=== PATIENT | male | born 1940 | race Caucasian/White ===

== ENCOUNTER → 2020-07-29 | Outpatient (CLI) | payer MEDICARE, BC ==
[~2020-07-29] MED LIST: ALLEGRA 60MG TA60 MG PO; ASPIRIN E.C. 8181 MG PO; BETAPACE 120MG120 MG PO; CALCIUM 600MG+D1 TAB PO; EPA FISH OIL1 SGL PO; KAPSPARGO SPRIN25 MG PO; LIVALO PO; LOPRESSOR 225 MG/TAB PO; METOPROLOL TART25 MG PO; METOPROLOL50 MG PO; NASONEX SPRAY17 GM NS; NIACIN500 M1 PO; NORVASC 10MG10 MG PO; OMEPRAZOLE40 MG PO; OS CAL PO; PRESERVISION1 SGL PO; VITAMIN C BUFF500 MG PO; VITAMIN D32000 IU PO; VITAMIN D3400 IU PO; VITAMIN E1000 U/CAP PO; XARELTO20 MG PO; [UNRECOGNIZED DRUG - OTHER] PO
[2020-07-29 14:24] LABS: TROPONIN-I < 0.012 ng/mL (0.000-0.035)
== END ==
LOC: ZCOL.LAB 13:19
PROVIDERS: Nurse Practitioner
DX: R06.02 Shortness of breath (principal)

== ENCOUNTER 2020-08-12 15:20 | Inpatient (IN) | payer MEDICARE, BC ==
[~2020-08-12 15:20] MED LIST changes: -ALLEGRA 60MG TA60 MG PO; -BETAPACE 120MG120 MG PO; -EPA FISH OIL1 SGL PO; -KAPSPARGO SPRIN25 MG PO; -NORVASC 10MG10 MG PO; -PRESERVISION1 SGL PO; -XARELTO20 MG PO
[2020-08-28 09:52] VITALS: BP 124/67; PULSE 115; TEMP 98.1
[2020-08-28] MEDS ORDERED: NORVASC 10MG10 MG PO (09:53)
[2020-08-28] MEDS ORDERED: KAPSPARGO SPRIN25 MG PO (09:55)
[2020-08-28] MEDS ORDERED: XARELTO20 MG PO (09:56)
[2020-08-28] MEDS ORDERED: EPA FISH OIL1 SGL PO (09:58)
[2020-08-28] MEDS ORDERED: PRESERVISION1 SGL PO (09:59)
[2020-08-28 10:04] LABS: HEMATOCRIT 38.6 % (42.0-52.0); HEMOGLOBIN 12.4 g/dl (13.5-18.0); MEAN CELL VOLUME 99 fl (80.0-100.0); MEAN CORPUSCULAR HEMOGLOBIN 32 pg (27.0-31.0); MEAN CORPUSCULAR HGB CONC 32 g/dl (33.0-37.0); MEAN PLATELET VOLUME 9.4 fl (7.4-10.4); PLATELET COUNT 240 K/mm3 (130-400); RED BLOOD COUNT 3.91 M/mm3 (4.20-5.60); REDCELL DISTRIBUTION WIDTH-CV 14.5 % (11.5-14.5)
[2020-08-28 10:11] LABS: INR 1.3 (0.8-3.0); PROTHROMBIN TIME 14.3 SECONDS (9.7-12.8)
[2020-08-28 10:14] LABS: PARTIAL THROMBOPLASTIN TIME 32.1 SECONDS (26.0-37.0)
[2020-08-28 10:15] LABS: ALBUMIN 3.9 gm/dL (3.5-5.0); BILIRUBIN,TOTAL 0.5 mg/dL (0.0-1.0); CALCIUM 8.8 mg/dL (8.4-10.2); CREATININE, serum 1.21 (0.66-1.25); MAGNESIUM 2.3 mg/dL (1.6-2.3); POTASSIUM 4.1 mmol/L (3.4-5.0); TOTAL PROTEIN 7.7 gm/dL (6.4-8.2)
[2020-08-28] MEDS ORDERED: ALLEGRA 60MG TA60 MG PO (10:18)
--- NOTE | 2020-08-28 10:30 | NUR ---
Admission assessment completed, alert/oriented, vital signs stable, denies pain or discomfort, EKG ordered, Sotalol orders faxed to pharmacy, Tele placed on patient, meds/allergies/pharmacy reviewed and updated with the patient, heart irregular/ A.paced on tele, lungs CTA/ no resp.difficulty noted, Notified cardiology of his arrival, he is indepednent in the room, denies needs
[2020-08-28 12:28] VITALS: BP 120/70; PULSE 63; TEMP 97.6
[2020-08-28 17:15] VITALS: BP 121/57; PULSE 66; TEMP 97.7
[2020-08-28 20:13] VITALS: BP 134/72; PULSE 79; TEMP 97.5
[2020-08-28 23:34] VITALS: BP 125/66; PULSE 68; TEMP 98.4
[2020-08-29 03:26] VITALS: BP 127/63; PULSE 65; TEMP 98.4
[2020-08-29 06:56] LABS: CALCIUM 8.3 mg/dL (8.4-10.2); CREATININE, serum 1.17 (0.66-1.25); MAGNESIUM 2.3 mg/dL (1.6-2.3); POTASSIUM 4.4 mmol/L (3.4-5.0)
[2020-08-29 07:42] VITALS: BP 133/63; PULSE 65; TEMP 97.6
--- NOTE | 2020-08-29 10:14 | NUR ---
Initial visit; Patient thanked Supervisor Home Energy Consultant for looking in on him and offering God's blessings.
[2020-08-29 11:31] VITALS: BP 105/58; PULSE 70; TEMP 97.6
--- NOTE | 2020-08-29 15:50 | NUR ---
Speed Winder met with the patient to complete intake. The patient is independent in the room. The patient lives in [place] with his , Melissa. The patient uses a BiPAP, receives supplies from [facility]. The patient is independent with ADLs. The patient's PCP is Dr. Singh and patient receives medications from [facility]. The patient has a declaration in the EMR but states DPOA-HC is complete and designate his . The patient plans to return home at discharge with no anticipated needs. Discharge disposition: Return home with Melissa
[2020-08-29 16:00] VITALS: BP 135/60; PULSE 61; TEMP 98.1
[2020-08-29 22:21] VITALS: BP 125/75; PULSE 53; TEMP 97.8
[2020-08-29 23:28] VITALS: BP 139/62; PULSE 64; TEMP 97.4
[2020-08-30] VITALS (9 sets, daily range): BP systolic 117–165; BP diastolic 57–77; PULSE 60–67; TEMP 97.1–98.1
[2020-08-30 06:56] LABS: CALCIUM 8.7 mg/dL (8.4-10.2); CREATININE, serum 1.14 (0.66-1.25); MAGNESIUM 2.2 mg/dL (1.6-2.3); POTASSIUM 4.7 mmol/L (3.4-5.0)
--- NOTE | 2020-08-30 07:06 | NUR ---
Report with MANUELA Lee. Pt resting in bed, denies pain or needs. IV to right forearm showing slight pink around insertion site and feeling hard to palpation. IVF's stopped. New IV will be attempted by student nurse.
--- NOTE | 2020-08-30 08:15 | NUR ---
Assessment complete. Pt resting in bed, A&O x 4, denies pain or needs at this time. IVF's infusing to new IV site in right wrist placed by student nurse, no s/s of complications. POC reviewed with pt. Call light in reach.
--- NOTE | 2020-08-30 08:30 | NUR ---
This RN reviewing pt chart in preparation for upcoming heart cath. Pt has history of CABG. Pt received Xarelto at 1700 [address] 08/[address] Kelly contacted in regards to access site for heart cath. Per , plan for right femoral access via ultrasound guidance.
--- NOTE | 2020-08-30 13:30 | NUR ---
Pt back to room from solar lab technician following procedure via bed, awake and alert. VSS. Right radial cath site CDI with TR band in place. Cap refill brisk. POC reviewed with pt regarding activity and food. Pt verbalizes understanding. Call light in reach.
--- NOTE | 2020-08-30 13:53 | NUR ---
Primary nurse was assisted with [phone] (transport to [employer]) patient care [facility] ADN student Celeste Dumont and [employer] [facility] ADN instructor Melinda Bell MSN, RN.
--- NOTE | 2020-08-30 15:45 | NUR ---
5 mls air removed from TR band to left radial site at 1535 , no s/s of bleeding after 5 minutes. Remaining 6 mls air removed from TR band without s/s of bleeding, site CDI.
--- NOTE | 2020-08-30 18:50 | NUR ---
Pt resting in bed, denies pain or needs at this time. Report with MANUELA Krishnan.
--- NOTE | 2020-08-30 20:00 | NUR ---
Report received, assumed care for business unit leader. Assessment complete. VS stable. A&Ox3. Denies pain/nausea/shortness of breath. Dressing to left radial heart cath vstt-myefoga-trq drainage noted. No active bleeding-arm brace on. Plan of care discussed for this shift to include HS meds/calling for questions/concerns/VS monitoring/dressing monitoring. Denies current questions/concerns. Call light in reach. Will monitor.
[2020-08-31] VITALS: BP 122/63; PULSE 67; TEMP 97.9
--- NOTE | 2020-08-31 00:45 | NUR ---
Resting eyes closed. No s/s of pain noted.
[2020-08-31 04:00] VITALS: BP 115/67; PULSE 67; TEMP 98.2
[2020-08-31 04:22] VITALS: BP 115/67; PULSE 67; TEMP 98.2
--- NOTE | 2020-08-31 05:45 | NUR ---
Rested well this shift. Denied pain/nausea/shortness of breath. VS remained stable. Left radial heart cath site-bandaid with scant amount of old drainage-no change this shift. Call light in reach. Will monitor.
[2020-08-31 07:42] VITALS: BP 130/55; PULSE 65; TEMP 98.3
[2020-08-31 07:57] VITALS: BP 130/55; PULSE 65; TEMP 98.3
[2020-08-31] MEDS ORDERED: BETAPACE 120MG120 MG PO (08:34)
--- NOTE | 2020-08-31 09:00 | NUR ---
Patient has been seen by Dr Naranjo and will be discharging after EKG. Patient is alert and oriented. No complaints of pain or nausea. CMS intact to left hand. Radial site is well approximated, no bruising or drainage. No other changes at this time. Call light wihtin reach. Patient is going to shower at this time.
--- NOTE | 2020-08-31 11:30 | NUR ---
Patient is discharging home. Discharge instructions discussed with patient. No questions verbalized. Explained that he needs to call Wednesday for follow up. Patient verbalized understanding. He is aware he has a prescription to sisal picker at the pharmacy. Copies of discharge instructions given to patient. INT discontinued. Patient walked out via wheel chair by Konstantin CASIANO.
== END 2020-08-31 11:30 | disposition home or self-care (01) | DRG 287 ==
LOC: MEDICAL
PROVIDERS: Nurse Practitioner; ADMIT Internal Medicine Interventional Cardiology
PROC: 4A023N7 Measurement of Cardiac Sampling and Pressure, Left Heart, Percutaneous Approach (ICD-10-PCS; principal; 2020-08-30)
PROC: B2111ZZ Fluoroscopy of Multiple Coronary Arteries using Low Osmolar Contrast (ICD-10-PCS; 2020-08-30)
PROC: B2181ZZ Fluoroscopy of Left Internal Mammary Bypass Graft using Low Osmolar Contrast (ICD-10-PCS; 2020-08-30)
PROC: B2131ZZ Fluoroscopy of Multiple Coronary Artery Bypass Grafts using Low Osmolar Contrast (ICD-10-PCS; 2020-08-30)
DX: I48.0 Paroxysmal atrial fibrillation (principal); I25.110 Atherosclerotic heart disease of native coronary artery with unstable angina pectoris; I10 Essential (primary) hypertension; I49.5 Sick sinus syndrome; E78.5 Hyperlipidemia, unspecified; Z95.1 Presence of aortocoronary bypass graft; Z95.0 Presence of cardiac pacemaker; Z88.0 Allergy status to penicillin; Z88.1 Allergy status to other antibiotic agents; Z88.8 Allergy status to other drugs, medicaments and biological substances; Z79.01 Long term (current) use of anticoagulants
CPT/HCPCS: J1644; J2250; J3010; Q9967

== ENCOUNTER 2020-09-13 05:57 | Day surgery (SDC) | payer MEDICARE, BC ==
[2020-09-13] VITALS (13 sets, daily range): BP systolic 135–185; BP diastolic 59–90; PULSE 60–73; TEMP 97.8–97.9
[~2020-09-13] VITALS: Ht 170.2 cm; Wt 79.9 kg
[~2020-09-13 05:57] MED LIST changes: +ALLEGRA 60MG TA60 MG PO; +BETAPACE 120MG120 MG PO; +EPA FISH OIL1 SGL PO; +KAPSPARGO SPRIN25 MG PO; +NORVASC 10MG10 MG PO; +PRESERVISION1 SGL PO; +XARELTO20 MG PO
[2020-09-13 06:46] LABS: HEMATOCRIT 37.9 % (42.0-52.0); HEMOGLOBIN 12.6 g/dl (13.5-18.0); MEAN CELL VOLUME 96 fl (80.0-100.0); MEAN CORPUSCULAR HEMOGLOBIN 32 pg (27.0-31.0); MEAN CORPUSCULAR HGB CONC 33 g/dl (33.0-37.0); MEAN PLATELET VOLUME 9.4 fl (7.4-10.4); PLATELET COUNT 215 K/mm3 (130-400); RED BLOOD COUNT 3.96 M/mm3 (4.20-5.60); REDCELL DISTRIBUTION WIDTH-CV 14.6 % (11.5-14.5)
[2020-09-13 07:06] LABS: CREATININE, serum 1.09 (0.66-1.25); POTASSIUM 4.4 mmol/L (3.4-5.0)
[2020-09-13 07:27] LABS: INR 1.2 (0.8-3.0); PROTHROMBIN TIME 13.5 SECONDS (9.7-12.8)
--- NOTE | 2020-09-13 20:00 | NUR ---
Initial shift assessment done- denies pain, no headache, right groin site soft, no hematoma, no drainage. Tele on. No requests at this time. Up to bathroom on own-- steady on feet-- pt will call if needs assistance.
[2020-09-14 00:06] VITALS: BP 133/81; PULSE 69; TEMP 98.5
[2020-09-14 04:23] VITALS: BP 132/71; PULSE 62; TEMP 98.4
--- NOTE | 2020-09-14 06:41 | NUR ---
Quiet night- slept fair. No requests. Tele on. Right groin site dry and intact,soft.
--- NOTE | 2020-09-14 08:00 | NUR ---
Patient laying in bed, A&Ox4. VSS. IV CDI. RT groin site CDI. Denies pain and discomfort. No further needs expressed from the patient. Call light within reach
--- NOTE | 2020-09-14 09:22 | NUR ---
Discharge paperwork reviewed with the patient. Patient verbalized an understanding to follow doctors orders. IV removed, tip intact, gauze and cobam applied. Personal belongings with the patient. No further needs expressed from the patient. Patient taken by wheelchair to the ER entrance by nursing staff
== END 2020-09-14 09:36 | disposition home or self-care (01) ==
LOC: COL.CAR 05:57 → MEDICAL 09:49 → COL.CAR 09-14 09:36
PROVIDERS: Internal Medicine Cardiovascular Disease
DX: I25.10 Atherosclerotic heart disease of native coronary artery without angina pectoris (principal); I48.0 Paroxysmal atrial fibrillation; R94.39 Abnormal result of other cardiovascular function study; I10 Essential (primary) hypertension; I47.2 Ventricular tachycardia; Z20.822 Contact with and (suspected) exposure to COVID-19; Z79.899 Other long term (current) drug therapy; Z95.1 Presence of aortocoronary bypass graft; Z79.01 Long term (current) use of anticoagulants; Z95.0 Presence of cardiac pacemaker; Z98.52 Vasectomy status
CPT/HCPCS: OP; C1725; C1760; C1769; C1874; C1887; C1894; C9600; J1644; J2250; J3010; J7030; Q9967